=== PATIENT | female | born 1990 ===

== ENCOUNTER 2021-01-27 13:53 | Inpatient (IN) | payer BC ==
[2021-01-27] VITALS (29 sets, daily range): BP systolic 97–173; BP diastolic 52–89; PULSE 68–98; TEMP 98.2–98.9
[~2021-01-27] VITALS: Ht 167.6 cm; Wt 105.9 kg
--- NOTE | 2021-01-27 15:34 | NUR ---
1357: PT. AMBULATORY TO UNIT WITH SPOUSE FOR C/O LOF. PT. ESCORTED TO LDR4 AND CLEAN GOWN ON. EFM/TOCO APPLIED, VITAL SIGNS OBTAINED, AND ASSESSMENTS COMPLETED. AMNITRACE + AND SVE /-3. QUESTIONS INVITED AND ANSWERED. INFORMED PT. THAT RN WILL CALL DR. ANGELO AND INFORM HER AND THEN BE BACK IN FOR ADMISSION LABS/IV/ MEDICATIONS NEEDED. PT. STATES UNDERSTANDING AND HAS NO FURTHER QUESTIONS.
[2021-01-27] MEDS ORDERED: UNISOM25 MG PO (15:43)
[2021-01-27] MEDS ORDERED: PRENATAL 19 CH1 EACH PO (15:43)
[2021-01-27] MEDS ORDERED: VITAMIN B650 MG (15:45)
[2021-01-27 16:21] LABS: MUCOUS Present /lpf; PH 5 (5-8); SQUAMOUS EPITHELIAL 0-2 /hpf; URINE APPEARANCE Clear; URINE BACTERIA None Seen /hpf; URINE BILIRUBIN Negative (NEGATIVE); URINE BLOOD 1+ (NEGATIVE); URINE COLOR Yellow; URINE GLUCOSE Negative (NEGATIVE); URINE KETONE Negative (NEGATIVE); URINE LEUKOCYTE ESTERASE Negative (NEGATIVE); URINE NITRATE Negative (NEGATIVE); URINE PROTEIN(semi-quant) Negative (NEGATIVE); URINE UROBILINOGEN Negative (NEGATIVE)
[2021-01-27 16:23] LABS: BASO % 0.2 % (0.0-2.0); EOS # 0.1 (0.0-0.7); EOS % 0.7 % (0-4.0); GRAN # 9.9 (1.4-6.5); GRAN % 73.7 % (42.2-75.2); HEMATOCRIT 39.2 % (37.0-47.0); HEMOGLOBIN 13.3 g/dl (12.5-16.0); LYMPH # 2.4 (1.2-3.4); MEAN CELL VOLUME 86 fl (80.0-100.0); MEAN CORPUSCULAR HEMOGLOBIN 29 pg (27.0-31.0); MEAN CORPUSCULAR HGB CONC 34 g/dl (33.0-37.0); MEAN PLATELET VOLUME 10.6 fl (7.4-10.4); MONO # 0.9 (0.1-0.6); PLATELET COUNT 254 K/mm3 (130-400); RED BLOOD COUNT 4.56 M/mm3 (4.10-5.30); REDCELL DISTRIBUTION WIDTH-CV 14.2 % (11.5-14.5)
[2021-01-27 16:32] LABS: ALBUMIN 3.6 gm/dL (3.5-5.0); BILIRUBIN,TOTAL 0.5 mg/dL (0.0-1.0); CALCIUM 9.1 mg/dL (8.4-10.2); CREATININE, serum 0.77 (0.52-1.25); POTASSIUM 4.2 mmol/L (3.4-5.0); TOTAL PROTEIN 7.3 gm/dL (6.4-8.2)
--- NOTE | 2021-01-27 16:57 | NUR ---
1546: PITOCIN STARTED 1550: ANCEF 2G SYRINGE PLACED ON PUMP AND STARTED AT 240ML/HR PER ORDER. 1552: HEART RATE DECELERATION TO THE 80-90S FOR ~9 MINUTES. POSITION CHANGED TO RIGHT LATERAL, FLUID BOLUS STARTED AND PITOCIN TURNED OFF. 1553: STEVE DAVE RN TO AND SVE WAS FOUND TO BE 3/90/0. TURNED TO LEFT. LATERAL W/ HEART TONES STILL DOWN IN THE 90S. FUNDUS PALPATES FIRM 1557: 10L/MIN O2 APPLIED TO PT VIA FACEMASK. PT. TURNED ONTO HANDS AND KNEES. 1559: DR. ANGELO CALLED AND INFORMED OF WHAT WAS GOING ON AND INTERVENTIONS. SHE STATED SHE IS ON HER WAY (SEE PHYS. NOTIFICATION) 1602: DR. ANGELO AT BS. SVE SAME ABOVE W/ BLOODY SHOW NOTED. HEART TONES ARE BACK UP TO 150S WITH MODERATE VARIABILITY NOTED. PER DR. ANGELO, WE WILL LET INFANT RECOVER AND THEN PROCEED WITH PITOCIN PER ORDER. DISCUSSION WITH DR. ANGELO, THIS RN, AND JOLIE (ROASTER OPERATOR) TOOK PLACE FOLLOWING INCIDENT. IT IS TO BE BELIEVED THAT WHILE ABX WAS BEING ADMINISTERED, IT BOLUSED THE PITOCIN THAT WAS PRIMED IN THE LINE, CAUSING IMMEDIATE AND PROLONGED CONTRACTION, CAUSING DISTRESS. AN INCIDENT REPORT WAS MADE. WILL CONTINUE TO MONITOR FHT AND PT STATUS
[2021-01-27 17:32] LABS: COLLECTION METHOD CLEAN CATCH
--- NOTE | 2021-01-27 18:04 | NUR ---
FHT: 1730: PT. UP TO BATHROOM. COUPLING NOTED ON CTX
--- NOTE | 2021-01-27 18:50 | NUR ---
PT TO EDGE OF BED FOR EPIDURAL PLACEMENT, PULSE OX TO FINGER. DIFFICULTY TRACING EFM DUE TO MATERNAL POSITIONING. LR BOLUS INFUSING PER PROTOCOL. 1850: SINGLE SHOT ADMINISTERED BY MARLIN LAWTON. PT TOLERATED PROCEDURE WELL.
[2021-01-28] VITALS (17 sets, daily range): BP systolic 104–175; BP diastolic 52–95; PULSE 75–120; TEMP 97.4–98.1
--- NOTE | 2021-01-28 01:01 | NUR ---
01/27/21 @ 2330: PT COMPLETE AND PREPARED TO BEGIN PUSHING, AT BEDSIDE FOR SVE. DELIVERY TABLE PREPARED AND NURSERY/CHARGE NURSE NOTIFIED. 01/28/21 @ 0040: AT BEDSIDE PUSHING WITH PATIENT. 01/28/21 @ 0101: OF VIABLE MALE . NUCHAL X1, BODY CORD X1. INFANT PLACED ON MATERNAL ABDOMEN. CORD CLAMP X2 AND CUT BY . CARE OF BABY ASSUMED BY MARILY Li RN. 01/28/21 @ 0105: SPONTANEOUS DELIVERY OF PLACENTA. PITOCIN STARTED AT 333ML/HR PER PROTOCOL. 2ND DEGREE LACERATION REPAIR AT THIS TIME BY . VITAL SIGNS REMAIN STABLE. REMAINS ON MOTHERS ABDOMEN.
--- NOTE | 2021-01-28 04:00 | NUR ---
PT REPORTS FULL SENSATION TO BLE. FUNDUS REMAINS FIRM AT UMBILICUS. LOCHIA WNL. VITAL SIGNS STABLE. PT ABLE TO SIT ON EDGE OF BED INDEPENDENTLY. EPIDURAL REMOVED AT THIS TIME. INT TO SALINE LOCK. AMBULATORY TO RESTROOM WITH STRONG STEADY GAIT. PT CLEANSED, JOSE CARE PERFORMED, NEW GOWN AND UNDERWEAR/PAD ON. PT AMBULATORY TO WHEELCHAIR AND ASSISTED TO ROOM. EDUCATION PROVIDED ON AND ORIENTATION TO ROOM WELL UPDATED ON PP POC. DENIES FURTHER QUESTIONS OR CONCERNS AT THIS TIME. REMAINS IN CRIB IN ROOM UPON THIS NURSE EXITING ROOM.
[2021-01-28] MEDS ORDERED: MOTRIN 800800 MG/TAB PO (17:08)
[2021-01-28] MEDS ORDERED: PERCOCET 325 MG1 TA2 PO (17:09)
[2021-01-29 09:00] VITALS: BP 109/66; PULSE 90; TEMP 98.6
[2021-01-29 16:45] VITALS: BP 123/76; PULSE 81; TEMP 97.9
[2021-01-29 19:30] VITALS: BP 112/66; PULSE 63; TEMP 98.1
[2021-01-30 08:03] VITALS: BP 104/68; PULSE 76; TEMP 98.3
== END 2021-01-30 11:32 | disposition home or self-care (01) | DRG 807 ==
LOC: LDRO 13:53 → LDR 13:57 → OB 01-28 04:00
PROVIDERS: ADMIT Obstetrics & Gynecology
PROC: 10E0XZZ Delivery of Products of Conception, External Approach (ICD-10-PCS; principal; 2021-01-28)
PROC: 0KQM0ZZ Repair Perineum Muscle, Open Approach (ICD-10-PCS; 2021-01-28)
PROC: 10907ZC Drainage of Amniotic Fluid, Therapeutic from Products of Conception, Via Natural or Artificial Opening (ICD-10-PCS; 2021-01-28)
PROC: 3E033VJ Introduction of Other Hormone into Peripheral Vein, Percutaneous Approach (ICD-10-PCS; 2021-01-28)
DX: O48.0 Post-term pregnancy (principal); Z37.0 Single live birth; O13.4 Gestational [pregnancy-induced] hypertension without significant proteinuria, complicating childbirth; O76 Abnormality in fetal heart rate and rhythm complicating labor and delivery; O42.92 Full-term premature rupture of membranes, unspecified as to length of time between rupture and onset of labor; O70.1 Second degree perineal laceration during delivery; Z3A.40 40 weeks gestation of pregnancy; O99.214 Obesity complicating childbirth; E66.9 Obesity, unspecified
CPT/HCPCS: J0690; J2400; J2590; J2795; J7120